=== PATIENT | female | born 1935 | race Two or more races ===

== ENCOUNTER 2021-07-04 12:02 | Day surgery (SDC) | payer OTHER ==
[~2021-07-04 12:02] MED LIST: LIPITOR PO
[2021-07-04] MEDS ORDERED: ULTRACET PO (14:54)
== END 2021-07-04 20:55 | disposition home or self-care (01) ==
LOC: CIR.AMB 12:02
PROVIDERS: ATTEND Surgery
DX: D12.8 Benign neoplasm of rectum (principal); K62.82 Dysplasia of anus; Z20.822 Contact with and (suspected) exposure to COVID-19